=== PATIENT | female | born 1990 ===

== ENCOUNTER 2024-03-06 12:26 | Inpatient (IN) | payer OTHER ==
[2024-03-06] VITALS (21 sets, daily range): BP systolic 97–144; BP diastolic 53–78; PULSE 72–118; TEMP 98.1–98.9
[~2024-03-06] VITALS: Ht 160 cm; Wt 98.2 kg
--- NOTE | 2024-03-06 12:30 | NUR ---
PT AMBULATORY TO UNIT WITH SPOUSE. REPORTS NO LOF, POSITIVE MOVEMENT, AND CTX Q4 MINUTES. SVE 4//-2. VS STABLE. EFM CAT 1. DR. DOS SANTOS NOTIFIED.
[2024-03-06] MEDS ORDERED: LR 1,000 ML IV SCH (13:00)
[2024-03-06] MEDS ORDERED: PRENATAL TABLET PO (13:02)
[2024-03-06] MEDS ORDERED: NATURAL IRON65 MG (13:03)
[2024-03-06 13:18] LABS: BASO % 0.3 % (0.0-2.0); GRAN # 7.3 K/mm3 (1.4-6.5); GRAN % 71.2 % (42.2-75.2); HEMATOCRIT 33.4 % (37.0-47.0); HEMOGLOBIN 10.9 g/dl (12.5-16.0); LYMPH # 2.2 K/mm3 (1.2-3.4); MEAN CELL VOLUME 74 fl (80.0-100.0); MEAN CORPUSCULAR HEMOGLOBIN 24 pg (27-31); MEAN CORPUSCULAR HGB CONC 33 g/dl (33.0-37.0); MEAN PLATELET VOLUME 11.8 fl (7.4-10.4); MONO # 0.6 K/mm3 (0.1-0.6); PLATELET COUNT 244 K/mm3 (130-400); RED BLOOD COUNT 4.54 M/mm3 (4.10-5.30); REDCELL DISTRIBUTION WIDTH-CV 14.2 % (11.5-14.5)
[2024-03-06] MEDS ORDERED: ROPivacaine PF 0.2% 200 ML IV ONE (13:37)
--- NOTE | 2024-03-06 13:38 | NUR ---
PT SITTING ON EDGE OF BED, 1000ML LR BOLUS COMPLETE, PULSE OX IN PLACE, DIFFICULTY TRACING EFM DUE TO MATERNAL POSITIONING. JAMES YOUNGBLOOD, AT BEDSIDE FOR EPIDURAL PLACEMENT. 1352 TEST DOSE ADMINISTERED. PT TOLERATED FAIR. VS STABLE. 1400 PT RETURNED TO LL POSITION. COMFORTABLE. EFM CAT 1. VS STABLE.
--- NOTE | 2024-03-06 14:08 | NUR ---
DR. DOS SANTOS AT BEDSIDE FOR SVE /-2 AND AROM CLEAR MOD AMOUNT OF FLUID. EFM CAT 1. VS STABLE.
[2024-03-06] MEDS ORDERED: Ondansetron 4 MG/2 ML VIAL IV PRN (15:00)
[2024-03-06] MEDS ORDERED: diphenhydrAMINE 50 MG/ML 1 ML VIAL IV PRN (15:00)
[2024-03-06] MEDS ORDERED: Naloxone 0.4 MG/ML VIAL IV PRN ×2 (15:00→15:45)
[2024-03-06] MEDS ORDERED: diphenhydrAMINE 25 MG CAP PO PRN (15:00)
[2024-03-06] MEDS ORDERED: ePHEDrine 50 MG/10 ML VIAL IV PRN (15:00)
[2024-03-06] MEDS ORDERED: Magnes Hydrox (MOM) 80 MG/ML 30 ML CUP PO PRN (15:45)
[2024-03-06] MEDS ORDERED: Ibuprofen 800 MG TAB PO SCH (15:45)
[2024-03-06] MEDS ORDERED: oxyCODONE 5 MG TAB PO PRN (15:45)
[2024-03-06] MEDS ORDERED: Mag/Al Hydrox/Simeth Susp 30 ML CUP PO PRN (15:45)
[2024-03-06] MEDS ORDERED: Loratadine 10 MG TAB PO PRN (15:45)
[2024-03-06] MEDS ORDERED: Witch Hazel 50% Pads Bulk TUB TP PRN (15:45)
[2024-03-06] MEDS ORDERED: Phenylephrine/Mineral Oil/Petrolatum 57 GM TUBE RC PRN (15:45)
[2024-03-06] MEDS ORDERED: Acetaminophen 500 MG TAB PO PRN (15:45)
[2024-03-06] MEDS ORDERED: Measles/Mumps/Rubella Virus Vaccine Live w Diluent 0.5 ML VIAL SQ SCH (15:45)
[2024-03-06] MEDS ORDERED: LR & Oxytocin 500 ML IV SCH (16:15)
--- NOTE | 2024-03-06 16:20 | NUR ---
DR. DOS SANTOS AT BEDSIDE FOR SVE. PT COMPLETE 0 STATION. ROOM SET FOR DELIVERY. STAFF NOTIFIED. [address] MALE PER DR. DOS SANTOS. INFANT PLACED ON MATERNAL ABDOMEN. CARE ASSUMED BY EDDIE RM. [address] DOS SANTOS. PT TOLERATED WELL. PITOCIN BOLUS INFUSING PER PROTOCOL. VS STABLE. DR. DOS SANTOS REPAIRED 2ND DEGREE LACERATION. FUNDUS FIRM, AT U, LOCHIA WNL. ROOM PUT BACK TOGETHER. PT COMFORTABLE IN BED.
[2024-03-06] MEDS ORDERED: Sennosides/Docusate 8.6-50 MG TAB PO SCH (17:00)
[2024-03-06] MEDS ORDERED: MOTRIN 800800 MG/TAB PO (20:36)
[2024-03-06] MEDS ORDERED: traZODone 50 MG TAB PO PRN (21:00)
--- NOTE | 2024-03-06 21:30 | NUR ---
PT AMB TO BR TO VOID, PERICARE DONE, PAD AND GOWN CHANGED. PT AMB TO WHEELCHAIR AND TRANSFERED TO PP ROOM 215. OT ORIENTED TO ROOM VS DONE. DRINKS AND SNACKS SUPPLIED.
[2024-03-07 05:05] VITALS: BP 118/68; PULSE 70; TEMP 97.9
[2024-03-07 08:00] VITALS: BP 105/58; PULSE 90; TEMP 98.7
--- NOTE | 2024-03-07 11:26 | NUR ---
Initial visit attempt; Physician present with family, Vice President Of Procurement left card offering congratulations for the of their son and information regarding the availability of [facility] Care at our [facility].
--- NOTE | 2024-03-07 13:58 | NUR ---
THIS RN OBSERVES TWO UNDERAGE CHILDREN ENTER THE PTS ROOM.THIS RN ENTERS THE ROOM AND INFORMS THEM OF OUR POLICY OF VISITORS IN THE ROOMS.PT VERBALIZES UNDERSTANDING.GUESTS INFORM THIS RN THAT THEY WILL BE LEAVING SOON.
[2024-03-07 16:00] VITALS: BP 122/62; PULSE 84; TEMP 98.3
== END 2024-03-07 18:30 | disposition home or self-care (01) | DRG 807 ==
LOC: LDRO 12:26 → LDR 12:52 → OB 03-07 06:00
PROVIDERS: ADMIT Obstetrics & Gynecology
PROC: 10E0XZZ Delivery of Products of Conception, External Approach (ICD-10-PCS; principal; 2024-03-06)
PROC: 0KQM0ZZ Repair Perineum Muscle, Open Approach (ICD-10-PCS; 2024-03-06)
PROC: 10907ZC Drainage of Amniotic Fluid, Therapeutic from Products of Conception, Via Natural or Artificial Opening (ICD-10-PCS; 2024-03-06)
DX: O48.0 Post-term pregnancy (principal); Z37.0 Single live birth; Z3A.40 40 weeks gestation of pregnancy; O99.02 Anemia complicating childbirth; O99.62 Diseases of the digestive system complicating childbirth; K21.9 Gastro-esophageal reflux disease without esophagitis; O99.284 Endocrine, nutritional and metabolic diseases complicating childbirth; E28.2 Polycystic ovarian syndrome; O76 Abnormality in fetal heart rate and rhythm complicating labor and delivery; O70.1 Second degree perineal laceration during delivery; Z23 Encounter for immunization
CPT/HCPCS: J2590; J2795; J7120